=== PATIENT | female | born 1995 | race Caucasian/White ===

== ENCOUNTER 2021-02-16 17:34 | Emergency (ER) | payer BC ==
[~2021-02-16] VITALS: Ht 182.9 cm; Wt 81.7 kg
[2021-02-16] MEDS ORDERED: TOPROL XL25 MG PO (17:47)
[2021-02-16] MEDS ORDERED: HYDROCODON-ACE1 EAC7 PO (18:20)
[2021-02-16 18:37] VITALS: BP 134/72
== END 2021-02-16 18:38 | disposition home or self-care (01) ==
LOC: M.ERS 17:34
DX: S60.222A Contusion of left hand, initial encounter (principal); I10 Essential (primary) hypertension; X58.XXXA Exposure to other specified factors, initial encounter; Y93.89 Activity, other specified; Y92.89 Other specified places as the place of occurrence of the external cause; Y99.8 Other external cause status